=== PATIENT | male | born 2000 | race Caucasian/White ===

== ENCOUNTER 2019-10-16 20:13 | Emergency (ER) | payer OTHER ==
[~2019-10-16] VITALS: Ht 175.3 cm; Wt 82.7 kg
[2019-10-16] MEDS ORDERED: PSEU120T3 PO (20:21)
[2019-10-16] MEDS ORDERED: GUAI100L31 PO (20:21)
[2019-10-16] MEDS ORDERED: NON-325T5 PO (20:21)
[2019-10-16] MEDS ORDERED: MUCI1TAB18 PO (20:21)
[2019-10-16 21:07] LABS: INFLUENZA A AMPLIFICATION NEGATIVE (NEGATIVE); INFLUENZA B AMPLIFICATION POSITIVE (NEGATIVE)
[2019-10-16] MEDS ORDERED: ONDA4TAB6 PO (23:11)
[2019-10-16] MEDS ORDERED: OSEL75CA PO (23:11)
[2019-10-16] MEDS ORDERED: BENZ200C70 PO (23:11)
[2019-10-16] MEDS ORDERED: OSELTAMIVIR PHOSPHATE 75 MG CAP (TAMIFLU) PO ONE (23:15)
[2019-10-16] MEDS ORDERED: BENZONATATE 100 MG CAP PO ONE (23:15)
[2019-10-17 00:03] VITALS: BP 128/78
== END 2019-10-17 00:04 | disposition home or self-care (01) ==
LOC: M ED 20:13
DX: J10.89 Influenza due to other identified influenza virus with other manifestations (principal); F17.200 Nicotine dependence, unspecified, uncomplicated